=== PATIENT | male | born 1925 | race Caucasian/White ===

== ENCOUNTER 2016-12-24 03:08 | Inpatient (IN) | payer MEDICARE, OTHER ==
[2016-12-24 03:50] LABS: ABSOLUTE LYMPHOCYTES (AUTO) 1.7 10^3/uL (0.5-4.7); ABSOLUTE MONOCYTES (AUTO) 0.6 10^3/uL (0.1-1.4); ABSOLUTE NEUT (AUTO) 2.2 10^3/uL (1.7-8.2); BASOPHILS % (AUTO) 0.4 % (0-2); HEMATOCRIT 33.4 % (37.9-51.0); HEMOGLOBIN 10.9 g/dL (13.5-17.0); HGB HCT DIFFERENCE -0.7; LYMPHOCYTES % (AUTO) 37.2 % (13-45); MEAN CORPUSCULAR HEMOGLOBIN 29.8 pg (27.0-33.4); MEAN CORPUSCULAR HGB CONC 32.7 g/dL (32.0-36.0); MEAN CORPUSCULAR VOLUME 91 fl (80-97); MONOCYTES % (AUTO) 12.3 % (3-13); RED BLOOD COUNT 3.67 10^6/uL (4.35-5.55); RED CELL DISTRIBUTION WIDTH 14.7 % (11.5-14.0); SEGMENTED NEUTROPHILS % (AUTO) 49.1 % (42-78); WHITE BLOOD COUNT 4.6 10^3/uL (4.0-10.5)
[2016-12-24] MEDS ORDERED: FUROSEMIDE INJ/PF 20 MG/2 ML SDV ONE (05:49)
[2016-12-24] MEDS ORDERED: ACETAMINOPHEN 325 MG TABLET ONE ×3 (05:49→19:31)
[2016-12-24] MEDS ORDERED: LIDOCAINE 5% (700 MG) TRANSDERMAL ADH..PATCH ONE (05:59)
[2016-12-24] MEDS ORDERED: LEVOFLOXACIN 500 MG TABLET ONE (09:50)
[2016-12-24] MEDS ORDERED: BUDESONIDE NEB 0.5 MG/2 ML AMPUL NEB ONE (16:31)
--- NOTE | 2016-12-24 16:36 | HISTORY AND PHYSICAL E ---
History and Physical NAME: SONU BACH : 1925 AGE: 89Y ADMITTED: 12/24/2016 ROOM: PATIENT LOCATION: [facility] on the third floor. PRESENT ILLNESS: Short of breath since 2:00 a.m. In the emergency room, he was found to have a saturation in the 70s on BiPAP 60%. He has finally got his saturation up to 100, although it took a long time. His BNP was a little elevated. He got 20 of Lasix. Chest x-ray only showed prominent vessels, but no edema. He smoked from 41 to 89, quit when he had a bypass that year. Has had a slightly productive cough since August that did not improve on azithromycin then. X-ray then showed no infiltrate either, although it did show hyperinflation and compression fractures at T5, T7, T10, T12, and L1, L3. Apparently, he has got some new compression fractures on today's x-ray, blamed on trying to lift his 5 days ago when she fell and broke her pelvis. As long as he is lying down he does not have any back pain, but when he is up he does. It is just under his shoulder blades, more on the right. PAST HISTORY: 1. In 2011, he had bilateral hip prostheses. 2. In 1967, he had a gastric ulcer surgery with a repair of a perforation. 3. He was hyperthyroid in 1995. PTU worked. 4. He has had a chronic cough since 2006. 5. Hypertension since 2000. 6. He has had chronic kidney disease since 2006. Dr. Kerr put him on a renal diet. MEDICATIONS: 1. Vitamin D Thursday, Thursday, Thursday. It is called Vital-D. 2. Simvastatin 10 mg daily. 3. Hydrochlorothiazide 25 mg daily if his pressure is over 140. 4. Cyanocobalamin 1 mg Thursday, Thursday, Thursday. 5. Atenolol 25 mg one-half b.i.d. ALLERGIES: SULFA CAUSED URTICARIA. REVIEW OF SYSTEMS: HEENT: No nasal congestion, sore throat. CARDIOVASCULAR: No chest pain. GASTROINTESTINAL/GENITOURINARY: No abdominal pain, vomiting, diarrhea, constipation, melena, rectal bleeding, hematuria, dysuria, or hesitancy. GENERAL: No fever. Has lost some weight, but does not know how much. FAMILY HISTORY: Diabetes in brother, stroke in mother. PHYSICAL EXAMINATION: VITAL SIGNS: See the paper chart, not available to me at the moment. MENTAL: Oriented, coherent, normal affect. NEUROLOGIC: Moves extremities. ENT: Tongue dry. NECK: Supple thyroid. SKIN: Normal. CHEST: Clear. HEART: Regular, no murmur or edema. ABDOMEN: No mass, tenderness, or organomegaly. JOINTS: He is kyphotic. DIAGNOSIS: Hypoxic respiratory failure associated with kyphosis and compression fractures, but I do not believe splinting from pain is enough to explain the hypoxia. We will try Levaquin this time. Started sprays. Get a pulmonary function test, DLCO, echocardiogram. He is not ready to decide about DNR yet, neither is the family who is here. DICTATING PHYSICIAN: KARINA PARSONS M.D. [id number] PHY#: [id number] ID: [id number] JOB#: [id number] ACCT: [id number] cc:NO Santa COYLE
--- NOTE | 2016-12-24 17:18 | EKG REPORT ---
SEVERITY:- ABNORMAL ECG - SINUS RHYTHM FIRST DEGREE AV BLOCK LEFT ANTERIOR FASCICULAR BLOCK LOW VOLTAGE IN FRONTAL LEADS REPOL ABNRM SUGGESTS ISCHEMIA, DIFFUSE LEADS : Confirmed by: Marion Benitez MD 24-Dec-2016 09:07:30
[2016-12-24] MEDS ORDERED: IPRATROPIUM/ALBUTEROL 0.5-2.5 MG/3 ML AMPUL NEB ONE (21:02)
[2016-12-24] MEDS ORDERED: TRAMADOL HCL 50 MG TABLET PO SCH (22:00)
[2016-12-25 06:18] LABS: ALANINE AMINOTRANSFERASE 33 U/L (21-72); ALBUMIN 3.5 g/dL (3.5-5.0); ALKALINE PHOSPHATASE 64 U/L (38-126); ANION GAP 14 (5-19); ASPARTATE AMINO TRANSFERASE 44 U/L (17-59); BILIRUBIN,DIRECT 0.4 mg/dL (0.0-0.4); BILIRUBIN,TOTAL 0.6 mg/dL (0.2-1.3); BLOOD UREA NITROGEN 71 mg/dL (7-20); CALCIUM 9.8 mg/dL (8.4-10.2); CARBON DIOXIDE 26 mmol/L (22-30); CHLORIDE 99 mmol/L (98-107); CREATININE RESULT 2.37 mg/dL (0.52-1.25); GLUCOSE 124 mg/dL (75-110); POTASSIUM 4.6 mmol/L (3.6-5.0); SODIUM 138.7 mmol/L (137-145); TOTAL PROTEIN 6.3 g/dL (6.3-8.2)
[2016-12-25 07:31] LABS: FOLATE > 20.00 ng/mL (>2.76)
[2016-12-25] MEDS ORDERED: ENOXAPARIN SODIUM INJ 30 MG/0.3 ML DISP.SYRIN SUBCUT SCH (08:00)
--- NOTE | 2016-12-25 08:03 | PDOC PROGRESS REPORT ---
Subjective Progress Note for:: 12/25/16 Subjective:: dyspnea & back pain gone with sprays & tramadol. Pft done. Echo pending Physical Exam Vital Signs: Temp Pulse Resp BP Pulse Ox 97.5 F 20 112/55 L 97 12/24/16 03:19 12/25/16 07:31 12/25/16 07:31 12/25/16 07:31 Intake & Output 12/23/16 12/24/16 12/25/16 07:59 07:59 07:59 Weight 105 lb General appearance: PRESENT: no acute distress Respiratory exam: PRESENT: clear to auscultation rito Cardiovascular exam: ABSENT: diastolic murmur, irregular rhythm, systolic murmur GI/Abdominal exam: ABSENT: mass, organolmegaly, tenderness Extremities exam: ABSENT: pedal edema Neurological exam: PRESENT: oriented to situation Psychiatric exam: PRESENT: appropriate affect Results Laboratory Results: 12/25/16 05:43 12/25/16 12/25/16 05:43 05:43 Retic Count (auto) 0.82 Absolute Retic 0.032 Sodium 138.7 Potassium 4.6 Chloride 99 Carbon Dioxide 26 Anion Gap 14 BUN 71 H Creatinine 2.37 H Est GFR ( Amer) 31 L Est GFR (Non-Af Amer) 26 L Glucose 124 H Calcium 9.8 Iron < 10.1 L TIBC 247 L % Saturation UNABLE TO CALCULATE Ferritin 232.00 Total Bilirubin 0.6 AST 44 ALT 33 Alkaline Phosphatase 64 Total Protein 6.3 Albumin 3.5 Vitamin B12 > 1000.0 H Folate > 20.00 Impressions: Chest X-Ray 12/24/16 03:26 IMPRESSION: No acute cardiopulmonary findings. Assessment & Plan - Diagnosis (1) Thoracic compression fracture Qualifiers: Encounter type: initial encounter Fracture type: closed Qualified Code(s): S22.000A - Wedge compression fracture of unspecified thoracic vertebra, initial encounter for closed fracture Is this a current diagnosis for this admission?: YesPlan: added miacalcin. Consider bone density & prolia later. (2) Chronic bronchitis Qualifiers: Chronic bronchitis type: mucopurulent Qualified Code(s): J41.1 - Mucopurulent chronic bronchitis Is this a current diagnosis for this admission?: YesPlan: continue levaquin, duoneb. Start advair. (3) CHF (congestive heart failure) Qualifiers: Congestive heart failure type: unspecified congestive heart failure type Congestive heart failure chronicity: acute Qualified Code(s): I50.9 - Heart failure, unspecified Is this a current diagnosis for this admission?: YesPlan: echo
[2016-12-25] MEDS: IPRATROPIUM/ALBUTEROL 0.5-2.5 MG/3 ML AMPUL NEB SCH ×5 (08:06→23:52)
[2016-12-25] MEDS: FLUTICASONE/SALMETEROL DISKUS 250-50 MCG/DOSE IH SCH (09:46)
[2016-12-25] MEDS ORDERED: CALCITONIN,SALMON 6000 UNIT/30 SPRAY 3.7 ML NASL SCH (10:00)
[2016-12-25] MEDS ORDERED: TRAMADOL HCL 50 MG TABLET PO SCH (10:00)
[2016-12-25] MEDS: CALCITONIN,SALMON 6000 UNIT/30 SPRAY 3.7 ML NASL SCH (10:00)
--- NOTE | 2016-12-25 12:12 | ER Document Report ---
Doctor's Note Notes: 12/25/16 12:11 Patient is in the emergency department pending admission with Dr. 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 Deep ST depression in V2 V3 V4 and V5. At this time I am going to the bedside to assess the patient very quickly by Dr. Llamas is contacted by nursing staff as this is his patient and asked to immediately attend to the patient.
--- NOTE | 2016-12-25 12:26 | ER Document Report ---
Doctor's Note Notes: 12/25/16 12:23 Went to see the patient at the bedside with family member present he is in no acute distress eating lunch. Blood pressure is stable he is tachycardic at around 117. Lungs are clear no respiratory distress. Nurse for Dr. Llamas on the line I spoke with Dr. Llamas told him that he has deep ST depression in V2 V3 V4 V5 which is completely changed from the previous EKG I have to compare to. I told Dr. Muhammad with the nurse was going to fax him a copy of EKG so that he can review it and she took his fax number. He did not communicate with me what he was going to do with the patient nor communicate with me whether with the come and see the patient or contact any consultants. And the nurse will remain in direct contact with him As the patient is admitted him.
[2016-12-25] MEDS ORDERED: ASPIRIN 81 MG TABLET, ENT COATED PO ONE (13:00)
--- NOTE | 2016-12-25 13:45 | XCELERA REPORT ---
[address] [address] Transthoracic Echocardiogram Report Name: SONU BACH Age: 89 yrs Gender: Male : 1925 Patient Status: Inpatient Patient Location: \S\15\S\A Study Date: 12/25/2016 10:39 AM Height: 60 in Weight: 105 lb BSA: 1.4 m2 Procedure: A complete two-dimensional transthoracic echocardiogram was performed (2D, M-mode, spectral and color flow Doppler). The study was technically adequate with some images being suboptimal in quality. Reason For Study: dyspnea/Bnp up Ordering Physician: KARINA PARSONS Performed By: Sandra Marcos Interpretation Summary Left ventricular systolic function is moderately reduced. The Ejection Fraction estimate is 35-40% There is borderline concentric left ventricular hypertrophy. Doppler measurements suggest reversible restrictive left ventricular relaxation, which is associated with grade III/IV or moderate diastolic dysfunction The left ventricle is grossly normal size. There is mid to distal anterior wall akinesis There is apical wall akinesis The right ventricular systolic function is normal. The right atrium is normal. The left atrial size is normal. There is a mild amount of mitral regurgitation There is no mitral valve stenosis. There is a mild amount of aortic regurgitation There is no aortic valve stenosis There is a trace or physiologic amount of tricuspid regurgitation Tricuspid regurgitation jet envelope not well defined to measure RV systolic pressure accurately. The aortic root is not well visualized. The inferior vena cava was not well visualized There is no pericardial effusion. MMode/2D Measurements \T\ Calculations RVDd: 2.1 cm LVIDd: 4.9 cm FS: 26.7 % Ao root diam: 4.1 cm IVSd: 0.67 cm LVIDs: 3.6 cm EDV(Teich): Ao root area: LVPWd: 0.76 cm 115.2 ml ESV(Teich): 13.3 cm2 55.2 ml LA dimension: 2.6 cm EF(Teich): 52.0 % LVOT diam: LVLd ap4: 6.9 cm SV(MOD-sp4): 2.0 cm EDV(MOD-sp4): 21.0 ml LVOT area: 52.0 ml 3.2 cm2 LVLs ap4: 6.0 cm ESV(MOD-sp4): 31.0 ml EF(MOD-sp4): 40.4 % Doppler Measurements \T\ Calculations MV E max melvi: MV P1/2t max melvi: Ao V2 max: AI max melvi: 132.8 cm/sec 133.8 cm/sec 104.7 cm/sec 309.9 cm/sec MV P1/2t: 46.1 msec Ao max PG: AI max P.4 mmHg 38.4 mmHg MVA(P1/2t): 4.8 cm2 AI dec slope: MV dec slope: ULYSSES(V,D): 2.8 cm2 850.6 cm/sec2 279.6 cm/sec2 AI P1/2t: 324.6 msec LV V1 max PG: PA V2 max: TR max melvi: 3.4 mmHg 81.8 cm/sec 231.1 cm/sec LV V1 max: PA max P.7 mmHg TR max P.8 cm/sec 21.4 mmHg Left Ventricle The left ventricle is grossly normal size. There is borderline concentric left ventricular hypertrophy. Left ventricular systolic function is moderately reduced. The Ejection Fraction estimate is 35-40%. Doppler measurements suggest reversible restrictive left ventricular relaxation, which is associated with grade III/IV or moderate diastolic dysfunction. There is mid to distal anterior wall akinesis. There is apical wall akinesis. Right Ventricle The right ventricle is grossly normal size. There is normal right ventricular wall thickness. The right ventricular systolic function is normal. Atria The right atrium is normal. The left atrial size is normal. Interarterial septum not well visualized and not well dopplered. Cannot comment on ASD/PFO presence. Mitral Valve The mitral valve leaflets are sclerotic and show some degree of functional abnormality. There is no mitral valve stenosis. There is a mild amount of mitral regurgitation. Aortic Valve The aortic valve is grossly normal. There is no aortic valve stenosis. There is a mild amount of aortic regurgitation. Tricuspid Valve The tricuspid valve is not well visualized secondary to technical limitations. There is no tricuspid stenosis. There is a trace or physiologic amount of tricuspid regurgitation. Tricuspid regurgitation jet envelope not well defined to measure RV systolic pressure accurately. Pulmonic Valve The pulmonic valve is not well visualized. Great Vessels The aortic root is not well visualized. The inferior vena cava was not well visualized. Effusions There is no pericardial effusion. : KARINA PARSONS Shyamal
[2016-12-25 13:52] LABS: CREATINE KINASE MB 1.95 ng/mL (<4.55); TROPONIN I < 0.012 ng/mL
[2016-12-25 13:53] LABS: ALANINE AMINOTRANSFERASE 27 U/L (21-72); ALBUMIN 3.8 g/dL (3.5-5.0); ALKALINE PHOSPHATASE 84 U/L (38-126); ANION GAP 14 (5-19); ASPARTATE AMINO TRANSFERASE 30 U/L (17-59); BILIRUBIN,DIRECT 0.6 mg/dL (0.0-0.4); BILIRUBIN,TOTAL 1.1 mg/dL (0.2-1.3); BLOOD UREA NITROGEN 63 mg/dL (7-20); CALCIUM 9.8 mg/dL (8.4-10.2); CARBON DIOXIDE 24 mmol/L (22-30); CHLORIDE 101 mmol/L (98-107); CREATININE RESULT 2.43 mg/dL (0.52-1.25); GLUCOSE 115 mg/dL (75-110); SODIUM 139.4 mmol/L (137-145)
[2016-12-25 13:54] LABS: CREATINE KINASE 73 U/L (55-170); TOTAL PROTEIN 7.2 g/dL (6.3-8.2)
[2016-12-25] MEDS ORDERED: FUROSEMIDE 20 MG TABLET PO ONE (15:39)
[2016-12-25 16:53] LABS: CREATINE KINASE MB 18.1 ng/mL (<4.55)
[2016-12-25 17:01] LABS: TROPONIN I 1.12 ng/mL
[2016-12-25] MEDS ORDERED: ENOXAPARIN SODIUM INJ 60 MG/0.6 ML DISP.SYRIN SUBCUT ONE (19:00)
[2016-12-25 23:49] LABS: CREATINE KINASE MB 25.9 ng/mL (<4.55)
[2016-12-25 23:56] LABS: TROPONIN I 1.64 ng/mL
[2016-12-26] MEDS: IPRATROPIUM/ALBUTEROL 0.5-2.5 MG/3 ML AMPUL NEB SCH ×5 (04:22→20:36)
[2016-12-26] MEDS ORDERED: ENOXAPARIN SODIUM INJ 30 MG/0.3 ML DISP.SYRIN SUBCUT SCH ×2 (05:15→08:00)
--- NOTE | 2016-12-26 07:11 | EKG REPORT ---
SEVERITY:- ABNORMAL ECG - SINUS TACHYCARDIA LOW VOLTAGE IN FRONTAL LEADS REPOL ABNRM, PROBABLE ISCHEMIA, ANT-LAT LEADS BORDERLINE PROLONGED QT INTERVAL : Confirmed by: Marion Benitez MD 26-Dec-2016 07:10:20
[2016-12-26 07:26] LABS: CREATINE KINASE MB 35.2 ng/mL (<4.55); TROPONIN I 1.98 ng/mL
[2016-12-26] MEDS: FLUTICASONE/SALMETEROL DISKUS 250-50 MCG/DOSE IH SCH ×3 (07:35→21:25)
[2016-12-26] MEDS: ENOXAPARIN SODIUM INJ 30 MG/0.3 ML DISP.SYRIN SUBCUT SCH (07:45)
--- NOTE | 2016-12-26 08:20 | PDOC PROGRESS REPORT ---
Subjective Progress Note for:: 12/26/16 Subjective:: No chest pain this admission. Yesterday deeper anterior T inversions. Troponin 1.1. I ordered full dose lovenox, but he was already on maximum for cc21 namely 30mg daily. BP was 110 and I did not order beta aspen. Physical Exam Vital Signs: Temp Pulse Resp BP Pulse Ox 98.5 F 109 H 16 125/70 99 12/26/16 03:37 12/26/16 04:22 12/26/16 04:22 12/26/16 03:37 12/26/16 03:37 Intake & Output 12/25/16 12/26/16 12/27/16 07:59 07:59 07:59 Intake Total 3 Output Total 1275 Balance -1272 Weight 105 lb 87 lb 15.431 oz General appearance: PRESENT: no acute distress Respiratory exam: PRESENT: clear to auscultation rito Cardiovascular exam: ABSENT: diastolic murmur, irregular rhythm, systolic murmur GI/Abdominal exam: ABSENT: mass, organolmegaly, tenderness Extremities exam: ABSENT: pedal edema Neurological exam: PRESENT: oriented to situation Psychiatric exam: PRESENT: appropriate affect Results Laboratory Results: 12/25/16 05:43 12/25/16 12/25/16 12/25/16 15:28 15:28 15:28 Creatine Kinase Cancelled CK-MB (CK-2) Cancelled Troponin I Cancelled 12/25/16 12/25/16 12/25/16 16:10 16:10 23:14 Creatine Kinase 455 H 619 H CK-MB (CK-2) 18.10 H Troponin I 1.120 12/25/16 12/26/16 12/26/16 23:14 05:50 05:50 Creatine Kinase 973 H CK-MB (CK-2) 25.90 H 35.20 H Troponin I 1.640 1.980 Impressions: Chest X-Ray 12/24/16 03:26 IMPRESSION: No acute cardiopulmonary findings. Assessment & Plan - Diagnosis (1) Non-STEMI (non-ST elevated myocardial infarction) Is this a current diagnosis for this admission?: YesPlan: Relatively silent except for initial dyspnea and hypoxia on admission. Echo showed apical akinesis. Troponin now 2. Cr2.4=CC21 and age 89 weigh against cath. 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 (2) CHF (congestive heart failure) Qualifiers: Congestive heart failure type: combined Congestive heart failure chronicity: acute on chronic Qualified Code(s): I50.43 - Acute on chronic combined systolic (congestive) and diastolic (congestive) heart failure Is this a current diagnosis for this admission?: YesPlan: Echo showed mild mr and ar, [id number], DDF grade3. I stopped furosemide for bun climb from 63to 71. (3) Chronic bronchitis Qualifiers: Chronic bronchitis type: mucopurulent Qualified Code(s): J41.1 - Mucopurulent chronic bronchitis Is this a current diagnosis for this admission?: Yes (4) Thoracic compression fracture Qualifiers: Encounter type: initial encounter Fracture type: closed Qualified Code(s): S22.000A - Wedge compression fracture of unspecified thoracic vertebra, initial encounter for closed fracture Is this a current diagnosis for this admission?: YesPlan: pain when up
[2016-12-26] MEDS: CALCITONIN,SALMON 6000 UNIT/30 SPRAY 3.7 ML NASL SCH (09:40)
[2016-12-26] MEDS: ASPIRIN 81 MG TABLET, ENT COATED PO SCH (09:40)
[2016-12-26] MEDS: LEVOFLOXACIN 500 MG TABLET PO SCH (09:41)
[2016-12-26] MEDS ORDERED: FUROSEMIDE 20 MG TABLET PO SCH (10:00)
[2016-12-26] MEDS ORDERED: ENOXAPARIN SODIUM INJ 60 MG/0.6 ML DISP.SYRIN SUBCUT SCH (10:00)
[2016-12-26] MEDS: HYDROCODONE/ACETAMINOPHEN 5-325 MG TABLET PO PRN (16:58)
[2016-12-27] MEDS: IPRATROPIUM/ALBUTEROL 0.5-2.5 MG/3 ML AMPUL NEB SCH ×5 (00:02→16:34)
--- NOTE | 2016-12-27 06:58 | PDOC PROGRESS REPORT ---
Subjective Progress Note for:: 12/27/16 Subjective:: mid back pain helped by rafael Physical Exam Vital Signs: Temp Pulse Resp BP Pulse Ox 97.3 F 103 H 16 127/67 H 96 12/27/16 03:34 12/27/16 04:16 12/27/16 04:16 12/27/16 03:34 12/27/16 04:16 Intake & Output 12/25/16 12/26/16 12/27/16 07:59 07:59 07:59 Intake Total 3 694 Output Total 1275 725 Balance -1272 -31 Weight 105 lb 87 lb 15.431 oz 85 lb 15.684 oz General appearance: PRESENT: no acute distress Respiratory exam: PRESENT: clear to auscultation rito Cardiovascular exam: ABSENT: diastolic murmur, irregular rhythm, systolic murmur GI/Abdominal exam: ABSENT: mass, organolmegaly, tenderness Extremities exam: ABSENT: pedal edema Neurological exam: PRESENT: oriented to situation Psychiatric exam: PRESENT: appropriate affect Results Laboratory Results: 12/25/16 05:43 12/25/16 12/25/16 12/25/16 16:10 16:10 23:14 Creatine Kinase 455 H 619 H CK-MB (CK-2) 18.10 H Troponin I 1.120 12/25/16 12/26/16 12/26/16 23:14 05:50 05:50 Creatine Kinase 973 H CK-MB (CK-2) 25.90 H 35.20 H Troponin I 1.640 1.980 12/26/16 12/26/16 12/27/16 15:15 16:25 04:10 Creatine Kinase CK-MB (CK-2) Troponin I Cancelled 2.300 2.110 Impressions: Chest X-Ray 12/24/16 03:26 IMPRESSION: No acute cardiopulmonary findings. Assessment & Plan - Diagnosis (1) Non-STEMI (non-ST elevated myocardial infarction) Is this a current diagnosis for this admission?: YesPlan: troponin peaked at 2.3. Pft done. Starting metoprolol 25qd (2) CHF (congestive heart failure) Qualifiers: Congestive heart failure type: combined Congestive heart failure chronicity: acute on chronic Qualified Code(s): I50.43 - Acute on chronic combined systolic (congestive) and diastolic (congestive) heart failure Is this a current diagnosis for this admission?: YesPlan: bun high enough. Now off furosemide. (3) Chronic bronchitis Qualifiers: Chronic bronchitis type: mucopurulent Qualified Code(s): J41.1 - Mucopurulent chronic bronchitis Is this a current diagnosis for this admission?: Yes (4) Thoracic compression fracture Qualifiers: Encounter type: initial encounter Fracture type: closed Qualified Code(s): S22.000A - Wedge compression fracture of unspecified thoracic vertebra, initial encounter for closed fracture Is this a current diagnosis for this admission?: Yes
[2016-12-27] MEDS: ASPIRIN 81 MG TABLET, ENT COATED PO SCH (08:54)
[2016-12-27] MEDS: FLUTICASONE/SALMETEROL DISKUS 250-50 MCG/DOSE IH SCH ×2 (08:55→21:39)
[2016-12-27] MEDS: ENOXAPARIN SODIUM INJ 30 MG/0.3 ML DISP.SYRIN SUBCUT SCH (08:57)
[2016-12-27] MEDS: HYDROCODONE/ACETAMINOPHEN 5-325 MG TABLET PO PRN ×2 (09:07→21:38)
[2016-12-27] MEDS: LUBIPROSTONE 24 MCG CAPSULE PO SCH ×2 (09:08→21:39)
[2016-12-27] MEDS: METOPROLOL SUCCINATE 25 MG TAB.SR.24H PO SCH (09:30)
[2016-12-27] MEDS: CALCITONIN,SALMON 6000 UNIT/30 SPRAY 3.7 ML NASL SCH (09:30)
--- NOTE | 2016-12-27 17:43 | EKG REPORT ---
SEVERITY:- ABNORMAL ECG - SINUS TACHYCARDIA BORDERLINE LEFT AXIS DEVIATION ANTERIOR INFARCT, AGE INDETERMINATE BORDERLINE PROLONGED QT INTERVAL : Confirmed by: Marion Benitez MD 27-Dec-2016 17:42:35
[2016-12-27] MEDS ORDERED: IPRATROPIUM/ALBUTEROL 0.5-2.5 MG/3 ML AMPUL NEB PRN (18:50)
[2016-12-27] MEDS: GABAPENTIN 300 MG CAPSULE PO SCH (21:39)
--- NOTE | 2016-12-28 07:05 | PDOC PROGRESS REPORT ---
Subjective Progress Note for:: 12/28/16 Subjective:: less cough on levaquin. Less back pain on gabapentin. Physical Exam Vital Signs: Temp Pulse Resp BP Pulse Ox 97.6 F 98 16 112/59 L 96 12/28/16 04:05 12/28/16 04:05 12/28/16 04:05 12/28/16 04:05 12/28/16 04:05 Intake & Output 12/26/16 12/27/16 12/28/16 07:59 07:59 07:59 Intake Total 3 694 834 Output Total 1275 725 400 Balance -1272 -31 434 Weight 87 lb 15.431 oz 85 lb 15.684 oz 85 lb 12.157 oz General appearance: PRESENT: no acute distress Respiratory exam: PRESENT: clear to auscultation rito Cardiovascular exam: ABSENT: diastolic murmur, irregular rhythm, systolic murmur GI/Abdominal exam: ABSENT: mass, organolmegaly, soft Extremities exam: ABSENT: pedal edema Neurological exam: PRESENT: oriented to situation Psychiatric exam: PRESENT: appropriate affect Results Laboratory Results: 12/25/16 05:43 Impressions: Chest X-Ray 12/24/16 03:26 IMPRESSION: No acute cardiopulmonary findings. Assessment & Plan - Diagnosis (1) Non-STEMI (non-ST elevated myocardial infarction) Is this a current diagnosis for this admission?: Yes (2) CHF (congestive heart failure) Qualifiers: Congestive heart failure type: combined Congestive heart failure chronicity: acute on chronic Qualified Code(s): I50.43 - Acute on chronic combined systolic (congestive) and diastolic (congestive) heart failure Is this a current diagnosis for this admission?: Yes (3) Chronic bronchitis Qualifiers: Chronic bronchitis type: mucopurulent Qualified Code(s): J41.1 - Mucopurulent chronic bronchitis Is this a current diagnosis for this admission?: Yes (4) Thoracic compression fracture Qualifiers: Encounter type: initial encounter Fracture type: closed Qualified Code(s): S22.000A - Wedge compression fracture of unspecified thoracic vertebra, initial encounter for closed fracture Is this a current diagnosis for this admission?: YesPlan: Walked sams with PT. Stop bedford.
[2016-12-28] MEDS: METOPROLOL SUCCINATE 25 MG TAB.SR.24H PO SCH (08:57)
[2016-12-28] MEDS: LEVOFLOXACIN 500 MG TABLET PO SCH (08:58)
[2016-12-28] MEDS: GABAPENTIN 300 MG CAPSULE PO SCH ×2 (08:58→22:45)
[2016-12-28] MEDS: ASPIRIN 81 MG TABLET, ENT COATED PO SCH (08:59)
[2016-12-28] MEDS: FLUTICASONE/SALMETEROL DISKUS 250-50 MCG/DOSE IH SCH ×2 (08:59→22:36)
[2016-12-28] MEDS: LUBIPROSTONE 24 MCG CAPSULE PO SCH ×2 (09:00→22:36)
[2016-12-28] MEDS: CALCITONIN,SALMON 6000 UNIT/30 SPRAY 3.7 ML NASL SCH (09:12)
[2016-12-28] MEDS: ENOXAPARIN SODIUM INJ 30 MG/0.3 ML DISP.SYRIN SUBCUT SCH (14:51)
[2016-12-29 07:03] LABS: ANION GAP 10 (5-19); BLOOD UREA NITROGEN 75 mg/dL (7-20); CALCIUM 9.7 mg/dL (8.4-10.2); CARBON DIOXIDE 32 mmol/L (22-30); CHLORIDE 96 mmol/L (98-107); CREATININE RESULT 1.95 mg/dL (0.52-1.25); GLUCOSE 94 mg/dL (75-110); POTASSIUM 4.1 mmol/L (3.6-5.0); SODIUM 138.3 mmol/L (137-145)
--- NOTE | 2016-12-29 07:34 | PDOC PROGRESS REPORT ---
Subjective Progress Note for:: 12/29/16 Subjective:: no dyspnea. Gabapentin helps back. Has help at home. Physical Exam Vital Signs: Temp Pulse Resp BP Pulse Ox 98.0 F 73 16 99/55 L 95 12/29/16 00:07 12/29/16 02:00 12/29/16 00:07 12/29/16 00:07 12/29/16 00:41 Intake & Output 12/27/16 12/28/16 12/29/16 07:59 07:59 07:59 Intake Total 694 834 847 Output Total 406 083 6896 Balance -31 434 -354 Weight 85 lb 15.684 oz 85 lb 12.157 oz 87 lb 11.904 oz General appearance: PRESENT: no acute distress Respiratory exam: PRESENT: clear to auscultation rito Cardiovascular exam: ABSENT: diastolic murmur, irregular rhythm, systolic murmur GI/Abdominal exam: ABSENT: mass, organolmegaly, tenderness Extremities exam: ABSENT: pedal edema Results Laboratory Results: 12/29/16 05:56 12/29/16 05:56 Sodium 138.3 Potassium 4.1 Chloride 96 L Carbon Dioxide 32 H Anion Gap 10 BUN 75 H Creatinine 1.95 H Est GFR ( Amer) 39 L Est GFR (Non-Af Amer) 33 L Glucose 94 Calcium 9.7 Impressions: Chest X-Ray 12/24/16 03:26 IMPRESSION: No acute cardiopulmonary findings. Assessment & Plan - Diagnosis (1) Non-STEMI (non-ST elevated myocardial infarction) Is this a current diagnosis for this admission?: YesPlan: ?home in am (2) CHF (congestive heart failure) Qualifiers: Congestive heart failure type: combined Congestive heart failure chronicity: acute on chronic Qualified Code(s): I50.43 - Acute on chronic combined systolic (congestive) and diastolic (congestive) heart failure Is this a current diagnosis for this admission?: YesPlan: [id number] (3) Chronic bronchitis Qualifiers: Chronic bronchitis type: mucopurulent Qualified Code(s): J41.1 - Mucopurulent chronic bronchitis Is this a current diagnosis for this admission?: Yes (4) Thoracic compression fracture Qualifiers: Encounter type: initial encounter Fracture type: closed Qualified Code(s): S22.000A - Wedge compression fracture of unspecified thoracic vertebra, initial encounter for closed fracture Is this a current diagnosis for this admission?: YesPlan: many on xr. Kyphosis. Continue gabapentin. (5) CKD (chronic kidney disease) stage 4, GFR 15-29 ml/min Is this a current diagnosis for this admission?: YesPlan: [id number]. Continue off furosemide. (6) Anemia of renal disease Is this a current diagnosis for this admission?: YesPlan: ferritin 232, Fe<10, [id number], b12>1000
[2016-12-29] MEDS: ENOXAPARIN SODIUM INJ 30 MG/0.3 ML DISP.SYRIN SUBCUT SCH (07:47)
[2016-12-29] MEDS: CALCITONIN,SALMON 6000 UNIT/30 SPRAY 3.7 ML NASL SCH (09:15)
[2016-12-29] MEDS: ASPIRIN 81 MG TABLET, ENT COATED PO SCH (09:16)
[2016-12-29] MEDS: METOPROLOL SUCCINATE 25 MG TAB.SR.24H PO SCH (09:16)
[2016-12-29] MEDS: FLUTICASONE/SALMETEROL DISKUS 250-50 MCG/DOSE IH SCH ×2 (09:16→21:35)
[2016-12-29] MEDS: LUBIPROSTONE 24 MCG CAPSULE PO SCH ×2 (09:16→21:35)
[2016-12-29] MEDS: GABAPENTIN 300 MG CAPSULE PO SCH ×2 (09:16→21:35)
--- NOTE | 2016-12-29 09:34 | PULMONARY FUNCTION TEST ---
DATE OF SERVICE: 12/26/2016 THE VITAL CAPACITY IS SLIGHTLY DECREASED. THE EXPIRATORY FLOW RATES ARE SLIGHTLY DECREASED. THE FEV1/VC IS 65%, PREDICTED: 77% LUNG VOLUMES BY NITROGEN WASH OUT METHOD SHOW: TLC IS 84% OF PREDICTED FRC IS 86% OF PREDICTED RV IS 86% OF PREDICTED THE DLCO IS 7.2, 82% OF PREDICTED. THE RV/TLC RATIO IS 54% PREDICTED 47% AFTER BRONCHODILATOR, EXPIRATORY FLOW RATES SHOW NO SIGNIFICANT CHANGE. IMPRESSION: THE INSPIRATORY LIMB OF THE F-V LOOP WAS POORLY PERFORMED. THE EXPIRATORY SPIROGRAM WAS ADEQUATE AND SHOWS A SLIGHT OBSTRUCTIVE DEFECT. DIFFUSING CAPACITY IS SLIGHTLY DECREASED. CC: KARINA PARSONS MD > ERIN
[2016-12-30 06:47] LABS: ANION GAP 12 (5-19); BLOOD UREA NITROGEN 78 mg/dL (7-20); CALCIUM 10.1 mg/dL (8.4-10.2); CARBON DIOXIDE 32 mmol/L (22-30); CHLORIDE 97 mmol/L (98-107); CREATININE RESULT 1.98 mg/dL (0.52-1.25); GLUCOSE 110 mg/dL (75-110); POTASSIUM 3.7 mmol/L (3.6-5.0); SODIUM 140.6 mmol/L (137-145)
--- NOTE | 2016-12-30 07:09 | PDOC DISCHARGE SUMMARY ---
General - Admit/Disc Date/PCP Admission Date/Primary Care Provider: 12/24/16 21:30 Discharge Date: 12/30/16 - Discharge Diagnosis (1) Non-STEMI (non-ST elevated myocardial infarction) Is this a current diagnosis for this admission?: Yes (2) CHF (congestive heart failure) Is this a current diagnosis for this admission?: Yes (3) Chronic bronchitis Is this a current diagnosis for this admission?: Yes (4) Thoracic compression fracture Is this a current diagnosis for this admission?: Yes (5) CKD (chronic kidney disease) stage 4, GFR 15-29 ml/min Is this a current diagnosis for this admission?: Yes (6) Anemia of renal disease Is this a current diagnosis for this admission?: Yes - Additional Information Resuscitation Status: Full Code Discharge Diet: Cardiac Discharge Activity: Balance Activity w/Rest, Weigh Daily Home Medications: Aspirin [Ecotrin 81 mg EC Tablet] 81 mg PO Q2DAYS 12/25/16 Cyanocobalamin (Vitamin B-12) [Vitamin B-12 500 mcg Tablet] 500 mcg PO MOWEFR@ 1000 12/25/16 Rosuvastatin Calcium [Crestor 10 mg Tablet] 10 mg PO QPM 12/25/16 Calcitonin,[place],Synthetic [Miacalcin Nasal [place] 200 Unit/[place] 3.7ML] 200 unit NASL DAILY #0 spray.pump 12/30/16 Fluticasone/Salmeterol [Advair 250-50 Diskus 14 Dose/Diskus] 1 inh IH Q12 #0 inhaler 12/30/16 Gabapentin [Neurontin 300 mg Capsule] 300 mg PO Q12 #60 capsule 12/30/16 Hydrocodone/Acetaminophen [[place] 5-325 Tablet] 1 each PO BID #60 tablet Metoprolol Succinate [Toprol Xl 25 mg Tab.sr] 25 mg PO DAILY #30 tab.sr.24h History of Present Illness History of Present Illness: SONU BACH is a 89 year old male who woke with acute dyspnea but no chest pain. Hospital Course Hospital Course: On day 2 anterior T inversions got deeper already on full dose lovenox for renal function. Troponin peaked at 2.3. Echo showed apical akinesis. After 2 doses of furosemide 20mg bun went from 63 to 78. Creatinine fell from 2.4 to 2. In spite of chronic cough, pft showed mild obstruction and diffusion block. 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 Pulse ox on room air is 98%. Physical Exam Vital Signs: Temp Pulse Resp BP Pulse Ox 97.8 F 68 20 104/50 L 100 12/30/16 04:20 12/30/16 04:20 12/30/16 04:20 12/30/16 04:20 12/30/16 04:20 Intake & Output 12/28/16 12/29/16 12/30/16 07:59 07:59 07:59 Intake Total 834 847 859 Output Total 400 1201 1000 Balance 434 -354 -141 Weight 85 lb 12.157 oz 87 lb 11.904 oz 87 lb 15.431 oz General appearance: PRESENT: no acute distress Respiratory exam: PRESENT: clear to auscultation rito Cardiovascular exam: ABSENT: diastolic murmur, irregular rhythm, systolic murmur GI/Abdominal exam: ABSENT: mass, organolmegaly, tenderness Extremities exam: ABSENT: pedal edema Results Laboratory Results: 12/30/16 05:39 Labs- Last Values WBC 4.6 10^3/uL (4.0-10.5) 12/24/16 03:35 RBC 3.67 10^6/uL (4.35-5.55) L 12/24/16 03:35 Hgb 10.9 g/dL (13.5-17.0) L 12/24/16 03:35 Hct 33.4 % (37.9-51.0) L 12/24/16 03:35 MCV 91 fl (80-97) 12/24/16 03:35 MCH 29.8 pg (27.0-33.4) 12/24/16 03:35 MCHC 32.7 g/dL (32.0-36.0) 12/24/16 03:35 RDW 14.7 % (11.5-14.0) H 12/24/16 03:35 Plt Count 129 10^3/uL (150-450) L 12/24/16 03:35 Seg Neutrophils % 49.1 % (42-78) 12/24/16 03:35 Lymphocytes % 37.2 % (13-45) 12/24/16 03:35 Monocytes % 12.3 % (3-13) 12/24/16 03:35 Eosinophils % 1.0 % (0-6) 12/24/16 03:35 Basophils % 0.4 % (0-2) 12/24/16 03:35 Absolute Neutrophils 2.2 10^3/uL (1.7-8.2) 12/24/16 03:35 Absolute Lymphocytes 1.7 10^3/uL (0.5-4.7) 12/24/16 03:35 Absolute Monocytes 0.6 10^3/uL (0.1-1.4) 12/24/16 03:35 Absolute Eosinophils 0.0 10^3/uL (0.0-0.6) 12/24/16 03:35 Absolute Basophils 0.0 10^3/uL (0.0-0.2) 12/24/16 03:35 Retic Count (auto) 0.82 % (0.66-2.85) 12/25/16 05:43 Absolute Retic 0.032 10^6/uL (0.028-0.122) 12/25/16 05:43 Sodium 140.6 mmol/L (137-145) 12/30/16 05:39 Potassium 3.7 mmol/L (3.6-5.0) 12/30/16 05:39 Chloride 97 mmol/L (98-107) L 12/30/16 05:39 Carbon Dioxide 32 mmol/L (22-30) H 12/30/16 05:39 Anion Gap 12 (5-19) 12/30/16 05:39 BUN 78 mg/dL (7-20) H 12/30/16 05:39 Creatinine 1.98 mg/dL (0.52-1.25) H 12/30/16 05:39 Est GFR ( Amer) 39 (>60) L 12/30/16 05:39 Est GFR (Non-Af Amer) 32 (>60) L 12/30/16 05:39 Glucose 110 mg/dL (75-110) 12/30/16 05:39 Calcium 10.1 mg/dL (8.4-10.2) 12/30/16 05:39 Iron < 10.1 ug/dL (49-181) L 12/25/16 05:43 TIBC 247 ug/dL (250-450) L 12/25/16 05:43 % Saturation UNABLE TO CALCULATE % (20% - 50%) 12/25/16 05:43 Ferritin 232.00 ng/mL (17.9-464.0) 12/25/16 05:43 Total Bilirubin 0.6 mg/dL (0.2-1.3) 12/25/16 05:43 Direct Bilirubin 0.4 mg/dL (0.0-0.4) 12/25/16 05:43 Indirect Bilirubin Not Reportable 12/25/16 05:43 Neonat Total Bilirubin Not Reportable 12/25/16 05:43 AST 44 U/L (17-59) 12/25/16 05:43 ALT 33 U/L (21-72) 12/25/16 05:43 Alkaline Phosphatase 64 U/L (38-126) 12/25/16 05:43 Creatine Kinase 973 U/L (55-170) H 12/26/16 05:50 CK-MB (CK-2) 35.20 ng/mL (<4.55) H 12/26/16 05:50 Troponin I 2.110 ng/mL 12/27/16 04:10 NT-Pro-B Natriuret Pep 4760 pg/mL (<450) H 12/24/16 03:35 Total Protein 6.3 g/dL (6.3-8.2) 12/25/16 05:43 Albumin 3.5 g/dL (3.5-5.0) 12/25/16 05:43 Vitamin B12 > 1000.0 pg/mL (239-931) H 12/25/16 05:43 Folate > 20.00 ng/mL (>2.76) 12/25/16 05:43 Impressions: Chest X-Ray 12/24/16 03:26 IMPRESSION: No acute cardiopulmonary findings. Qualifiers PATEINT BEING DISCHARGED WITH ANY OF THE FOLLOWING DIAGNOSIS?: IA IA Pt being discharged on Aspirin therapy?: Yes IA Pt being discharged on Statins?: Yes IA Pt discharged ACEI/ARBS?: No Reason(s) for not prescribing ACEI/ARBS:: Medical Contraindication - bp low Plan Discharge Plan: home. 1w ov Time Spent: Less than 30 Minutes
[2016-12-30 08:18] VITALS: BP 137/64
[2016-12-30] MEDS: ENOXAPARIN SODIUM INJ 30 MG/0.3 ML DISP.SYRIN SUBCUT SCH (08:23)
[2016-12-30] MEDS: LEVOFLOXACIN 500 MG TABLET PO SCH (09:37)
[2016-12-30] MEDS: GABAPENTIN 300 MG CAPSULE PO SCH (09:37)
[2016-12-30] MEDS: LUBIPROSTONE 24 MCG CAPSULE PO SCH (09:37)
[2016-12-30] MEDS: ASPIRIN 81 MG TABLET, ENT COATED PO SCH (09:37)
[2016-12-30] MEDS: FLUTICASONE/SALMETEROL DISKUS 250-50 MCG/DOSE IH SCH (09:37)
[2016-12-30] MEDS: METOPROLOL SUCCINATE 25 MG TAB.SR.24H PO SCH (09:45)
--- NOTE | 2017-01-01 13:04 | RADIOLOGY REPORT (SQ) ---
EXAM DESCRIPTION: T SPINE AP/LAT COMPLETED DATE/TIME: 12/25/2016 2:59 pm REASON FOR STUDY: PAIN COMPARISON: CR, 09/20/11. NUMBER OF VIEWS: Two views. TECHNIQUE: AP and lateral radiographic images acquired of the thoracic spine. LIMITATIONS: None. FINDINGS: Three views of the thoracic spine demonstrates severe bony demineralization and multiple m oderate-severe anterior compression deformities throughout the mid and lower thoracic spine with mode rate exaggerated upper-mid thoracic curvature. Alignments normal. Median sternotomy. IMPRESSION: Numerous moderate severe anterior compression deformities throughout the mid lower thora cic spine or unknown chronicity. TECHNICAL DOCUMENTATION: JOB ID: [id number] [email or web address]- All Rights Reserved
== END 2016-12-30 11:30 | disposition home or self-care (01) | DRG 280 ==
LOC: ER 03:08 → EH 21:30 → 3S 12-25 22:50
PROVIDERS: ADMIT Family Medicine; ATTEND Family Medicine
PROC: 5A09357 Assistance with Respiratory Ventilation, Less than 24 Consecutive Hours, Continuous Positive Airway Pressure (ICD-10-PCS; principal; 2016-12-24)
PROC: 3E0F73Z Introduction of Anti-inflammatory into Respiratory Tract, Via Natural or Artificial Opening (ICD-10-PCS; 2016-12-25)
DX: I21.4 Non-ST elevation (NSTEMI) myocardial infarction (principal); I50.43 Acute on chronic combined systolic (congestive) and diastolic (congestive) heart failure; J96.91 Respiratory failure, unspecified with hypoxia; S22.000A Wedge compression fracture of unspecified thoracic vertebra, initial encounter for closed fracture; N18.4 Chronic kidney disease, stage 4 (severe); I13.0 Hypertensive heart and chronic kidney disease with heart failure and stage 1 through stage 4 chronic kidney disease, or unspecified chronic kidney disease; S22.059A Unspecified fracture of T5-T6 vertebra, initial encounter for closed fracture; S22.079A Unspecified fracture of T9-T10 vertebra, initial encounter for closed fracture; S22.089A Unspecified fracture of T11-T12 vertebra, initial encounter for closed fracture; J41.1 Mucopurulent chronic bronchitis; D63.1 Anemia in chronic kidney disease; X50.0XXA Overexertion from strenuous movement or load, initial encounter; Z88.2 Allergy status to sulfonamides; Z87.891 Personal history of nicotine dependence; Z79.899 Other long term (current) drug therapy; Z83.3 Family history of diabetes mellitus; Z82.3 Family history of stroke
CPT/HCPCS: 36415; 71010; 72070; 80048; 80053; 82550; 82553; 82607; 82728; 82746; 83540; 83550; 83880; 84484; 85025; 85045; 93005; 93010; 93306; 94060; 94640; 94660; 94729; 99285; G8978-GP; G8979-GP; J1650; J1940; J3490; J7620